=== PATIENT | female | born 1960 | race Caucasian/White ===

== ENCOUNTER 2016-12-12 16:09 | Inpatient (IN) | payer MEDICAID, OTHER ==
[~2016-12-12] VITALS: Ht 170.2 cm; Wt 97.7 kg
[~2016-12-12 16:09] MED LIST: ARIP20 PO; CARB0.5D16 OU; GEOD80CA PO; NYSTT TOP; ZANTTAB9 PO
[2016-12-12] MEDS ORDERED: ATOR10TA15 PO (16:42)
[2016-12-12] MEDS ORDERED: GABA100C4 PO (16:42)
[2016-12-12] MEDS ORDERED: [UNRECOGNIZED DRUG - OTHER] (16:42)
[2016-12-12] MEDS ORDERED: INVE1.5T PO (16:42)
[2016-12-12 16:51] VITALS: BP 116/76; PULSE 115; RESP 18; TEMP 99.4; O2SAT 99
[2016-12-12 17:04] LABS: BACTERIA, URINE OCC /hpf; BLOOD, URINE TRACE (NEG); COMMENT (UR) CULTURE INDICATED; CULTURE IF INDICATED CULTURE INDICATED; GLUCOSE,URINE NEG (NEG); HYALINE CAST, URINE 23 /lpf (RARE); KETONE, URINE NEG (NEG); MUCUS URINE MANY /lpf (OCC); NITRITE,URINE NEG (NEG); SQUAMOUS EPITHELIAL CELL URINE 16 /hpf (0-5); URINE COLOR YELLOW (YELLW/STRAW)
[2016-12-12 17:07] LABS: HEMATOCRIT 37.4 % (35.0-46.0); HEMO FLAGS DIFF FINAL; LYMPH % 43.3 % (9.0-44.0); LYMPHOCYTE # 2.7 TH/MM3 (1.0-4.8); MEAN CELL VOLUME 83.9 FL (80.0-100.0); MEAN CORPUSCULAR HEMOGLOBIN 29.1 PG (27.0-34.0); MEAN CORPUSCULAR HGB CONC 34.7 % (32.0-36.0); MONO % 8.6 % (0.0-8.0); NEUT % 48.1 % (16.0-70.0); PLATELET COUNT 252 TH/MM3 (150-450); RED BLOOD COUNT 4.46 MIL/MM3 (4.00-5.30); RED CELL DISTRIBUTION WIDTH 14.9 % (11.6-17.2); WHITE BLOOD COUNT 6.2 TH/MM3 (4.0-11.0)
[2016-12-12] MEDS ORDERED: BACT800T5 PO (17:08)
[2016-12-12] MEDS ORDERED: SULFAMETHOXAZOLE-TRIMETHOPRIM DS 800-160 MG TAB PO ONE (17:15)
[2016-12-12 17:23] LABS: ANION GAP 7 MEQ/L (5-15); BICARBONATE 27.8 MEQ/L (21.0-32.0); BLOOD UREA NITROGEN 18 MG/DL (7-18); CHLORIDE 108 MEQ/L (98-107); GLOMERULAR FILTRATION RATE 61 ML/MIN (>89); POTASSIUM 3.7 MEQ/L (3.5-5.1); SODIUM (NA) 143 MEQ/L (136-145)
[2016-12-12 17:24] LABS: ALCOHOL LESS THAN 3 MG/DL (0-5)
[2016-12-12 17:25] LABS: ACETAMINOPHEN LESS THAN 2.0 MCG/ML (10.0-30.0)
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
[2016-12-12 18:24] VITALS: BP 119/78; PULSE 111; RESP 18; O2SAT 96
[2016-12-12 22:04] VITALS: BP 126/58; PULSE 71; RESP 18; O2SAT 95
[2016-12-13] MEDS ORDERED: HALOPERIDOL 5 MG TAB PO PRN (00:15)
[2016-12-13] MEDS ORDERED: ALUMINUM/MAGNESIUM/SIMETH 30 ML CUP PO PRN (00:15)
[2016-12-13] MEDS ORDERED: diphenhydrAMINE HCL 50 MG CAP PO PRN (00:15)
[2016-12-13] MEDS ORDERED: LORazepam 1 MG TAB PO PRN (00:15)
[2016-12-13] MEDS ORDERED: LORazepam 2 MG/ML VIAL IM PRN (00:15)
[2016-12-13] MEDS ORDERED: HALOPERIDOL LACTATE 5 MG/ML AMP IM PRN (00:15)
[2016-12-13] MEDS ORDERED: diphenhydrAMINE HCL 50 MG/ML VIAL IM PRN (00:15)
[2016-12-13 02:15] VITALS: BP 122/62; PULSE 73; RESP 18; O2SAT 98
[2016-12-13 04:50] VITALS: BP 123/72; PULSE 91; RESP 18; TEMP 97.6; O2SAT 98
[2016-12-13] MEDS: GABAPENTIN 100 MG CAP PO SCH ×2 (08:54→20:45)
[2016-12-13] MEDS: SULFAMETHOXAZOLE-TRIMETHOPRIM DS 800-160 MG TAB PO SCH ×2 (08:55→20:45)
[2016-12-13] MEDS: REMOVE OLD PATCH T-DERMAL SCH (09:00)
[2016-12-13] MEDS: NICOTINE 21 MG/24 HR PATCH T-DERMAL SCH (09:00)
[2016-12-13] MEDS ORDERED: PALIPERIDONE ER 1.5 MG TAB PO SCH (09:00)
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
[2016-12-13 12:18] LABS: ALKALINE PHOSPHATASE 86 U/L (45-117); ALT (GPT) 22 U/L (10-53); ANION GAP 6 MEQ/L (5-15); AST (GOT) 21 U/L (15-37); BICARBONATE 29.3 MEQ/L (21.0-32.0); BLOOD UREA NITROGEN 14 MG/DL (7-18); CHLORIDE 100 MEQ/L (98-107); GLOMERULAR FILTRATION RATE 83 ML/MIN (>89); HDL CHOLESTEROL 39.3 MG/DL (40.0-60.0); LDL CHOLESTEROL 61 MG/DL (0-99); POTASSIUM 3.7 MEQ/L (3.5-5.1); SODIUM (NA) 135 MEQ/L (136-145); TOTAL BILIRUBIN ADULT 0.4 MG/DL (0.2-1.0)
[2016-12-13] MEDS ORDERED: PALIPERIDONE PALMITATE 234 MG/1.5 ML SYRINGE IM ONE ×2 (14:45→22:00)
[2016-12-13 17:05] LABS: HEMOGLOBIN A1a 1.2 %; HEMOGLOBIN A1b 0.8 %; HEMOGLOBIN Ao 85.1 %; HEMOGLOBIN P3 3.6 %
[2016-12-13] MEDS: ACETAMINOPHEN 325 MG TAB PO PRN (17:33)
[2016-12-13 19:14] VITALS: BP 124/81; PULSE 91; RESP 18; TEMP 97.6; O2SAT 97
[2016-12-13] MEDS: ATORVASTATIN 10 MG TAB PO SCH (20:45)
[2016-12-14 05:17] VITALS: BP 115/63; PULSE 79; RESP 18; TEMP 98; O2SAT 97
[2016-12-14] MEDS: SULFAMETHOXAZOLE-TRIMETHOPRIM DS 800-160 MG TAB PO SCH ×2 (08:37→20:59)
[2016-12-14] MEDS: GABAPENTIN 100 MG CAP PO SCH ×2 (09:00→20:58)
[2016-12-14] MEDS: PALIPERIDONE ER 1.5 MG TAB PO SCH (09:00)
[2016-12-14] MEDS: NICOTINE 21 MG/24 HR PATCH T-DERMAL SCH (09:00)
[2016-12-14] MEDS: REMOVE OLD PATCH T-DERMAL SCH (09:00)
[2016-12-14] MEDS ORDERED: PALIPERIDONE ER 1.5 MG TAB PO SCH (09:00)
--- NOTE | 2016-12-14 17:16 | EKG ---
Date Performed: 12/14/2016 Time Performed: 07:47:19 PTAGE: 56 years EKG: Sinus rhythm NORMAL ECG Compared to prior tracing no significant change PREVIOUS TRACING : 01/11/2009 07.18 DOCTOR: Gabriel Bunn Interpretating Date/Time 12/14/2016 17:15:17
[2016-12-14 18:27] VITALS: BP 144/82; PULSE 107; RESP 18; TEMP 99; O2SAT 98
[2016-12-14] MEDS: ATORVASTATIN 10 MG TAB PO SCH (20:58)
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
[2016-12-15 06:20] VITALS: BP 113/64; PULSE 82; RESP 17; TEMP 98.2; O2SAT 96
[2016-12-15] MEDS: ACETAMINOPHEN 325 MG TAB PO PRN (08:16)
[2016-12-15] MEDS: GABAPENTIN 100 MG CAP PO SCH ×2 (08:17→22:10)
[2016-12-15] MEDS: SULFAMETHOXAZOLE-TRIMETHOPRIM DS 800-160 MG TAB PO SCH ×2 (08:18→22:10)
[2016-12-15] MEDS: PALIPERIDONE ER 1.5 MG TAB PO SCH (08:18)
[2016-12-15] MEDS: NICOTINE 21 MG/24 HR PATCH T-DERMAL SCH (08:22)
[2016-12-15] MEDS: REMOVE OLD PATCH T-DERMAL SCH (08:22)
[2016-12-15] MEDS: MAGNESIUM HYDROXIDE SUSP 30 ML CUP PO PRN (12:13)
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
[2016-12-15 18:24] VITALS: BP 118/77; PULSE 91; RESP 16; TEMP 98.2; O2SAT 96
[2016-12-15] MEDS: ATORVASTATIN 10 MG TAB PO SCH (22:11)
[2016-12-16 06:00] VITALS: BP 120/70; PULSE 74; RESP 18; TEMP 98; O2SAT 95
[2016-12-16] MEDS: GABAPENTIN 100 MG CAP PO SCH ×2 (08:55→21:03)
[2016-12-16] MEDS: SULFAMETHOXAZOLE-TRIMETHOPRIM DS 800-160 MG TAB PO SCH ×2 (08:55→21:03)
[2016-12-16] MEDS: NICOTINE 21 MG/24 HR PATCH T-DERMAL SCH (09:00)
[2016-12-16] MEDS: REMOVE OLD PATCH T-DERMAL SCH (09:00)
[2016-12-16] MEDS ORDERED: PALIPERIDONE ER 3 MG TAB PO SCH (09:00)
--- NOTE | 2016-12-16 16:02 | HHI.PYPN ---
Subjective Remarks Patient discussed with treatment team, patient seen on unit with nurse Kristen. I replaced patient from contact with her at [employer] many years ago. And she appeared to recognize me also. She is vague about any persistent auditory hallucinations though she denies suicidality. She is compliant with medications at the present time. It appears she is tolerating the Invega orally at this time if this continues for another few days will offer her the in [place] sustain a Review of Systems Except as stated in HPI: all other systems reviewed are Neg Objective Alert: Yes [place]: Person, Place Mood: Other (elevated) Affect: Other (intense bizarre stare) Memory Intact: Comment (fair) Hallucinations: Auditory (appears to be responding to internal stimuli) Delusions: Yes Delusion Type: Paranoid Suicidal: Ideation (denies) Homicidal: Ideation (denies) Insight/Judgment Poor Labs Date/Time Procedure Status Source Growth 12/12/16 16:41 Urine Culture - Final Complete Urine Clean Catch 50-100,000 CFU/ML MIXED KIP... Vitals/IOs Vital Signs Date Time Temp Pulse Resp B/P Pulse Ox O2 Delivery O2 Flow Rate FiO2 12/16/16 06:00 98.0 74 18 120/70 95 12/13/16 02:15 Room Air Intake and Output 12/15/16 12/15/16 12/16/16 08:00 16:00 00:00 Intake Total 240 ml Balance 240 ml Assessment & Plan Problem List: (1) Schizoaffective disorder ICD Code: F25.9 Assessment & Plan Estimated LOS: days she continues psychotic delusional though appears to be no behavior problem, compliant medications Justification for Cont. Inpt. At this time patient will decompensate if placed in a lower level of care Discharge Planning To be determined Request HC Surrog/Guard Advoc?: Yes Problem Qualifiers (1) Schizoaffective disorder: Qualified Code: F25.0 - Schizoaffective disorder, bipolar type Matt Christine MD Dec 16, 2016 16:02
[2016-12-16 18:15] VITALS: BP 106/85; PULSE 136; RESP 18; TEMP 98.2; O2SAT 96
[2016-12-16] MEDS: ATORVASTATIN 10 MG TAB PO SCH (21:03)
[2016-12-17] MEDS: ACETAMINOPHEN 325 MG TAB PO PRN ×2 (03:11→18:36)
[2016-12-17 05:51] VITALS: BP 113/69; PULSE 84; RESP 18; TEMP 97.9; O2SAT 96
[2016-12-17] MEDS: GABAPENTIN 100 MG CAP PO SCH ×2 (08:52→21:43)
[2016-12-17] MEDS: SULFAMETHOXAZOLE-TRIMETHOPRIM DS 800-160 MG TAB PO SCH ×2 (08:52→21:43)
[2016-12-17] MEDS: PALIPERIDONE ER 6 MG TAB PO SCH (08:52)
[2016-12-17] MEDS: PALIPERIDONE ER 1.5 MG TAB PO SCH (08:52)
[2016-12-17] MEDS: REMOVE OLD PATCH T-DERMAL SCH (08:53)
[2016-12-17] MEDS: NICOTINE 21 MG/24 HR PATCH T-DERMAL SCH (08:53)
[2016-12-17 15:22] VITALS: BP 113/74; PULSE 96; RESP 18; TEMP 98.2; O2SAT 96
--- NOTE | 2016-12-17 16:35 | HHI.PYPN ---
Subjective Remarks Patient seen in dayroom with floor staff. Patient calm appropriate and pleasant with me denying voices or visions. Those somewhat silly superficial and guarded. It appears she is now becoming willing to take the in [place] sustain a that she has refused with the fact team will order that for tomorrow Review of Systems Except as stated in HPI: all other systems reviewed are Neg Objective Alert: Yes [place]: Person, Place Mood: Other (elevated) Affect: Other (intense bizarre stare) Memory Intact: Comment (fair) Hallucinations: Auditory (appears to be responding to internal stimuli) Delusions: Yes Delusion Type: Paranoid Suicidal: Ideation (denies) Homicidal: Ideation (denies) Insight/Judgment Poor Labs Date/Time Procedure Status Source Growth 12/12/16 16:41 Urine Culture - Final Complete Urine Clean Catch 50-100,000 CFU/ML MIXED KIP... Vitals/IOs Vital Signs Date Time Temp Pulse Resp B/P Pulse Ox O2 Delivery O2 Flow Rate FiO2 12/17/16 15:22 98.2 96 18 113/74 96 Assessment & Plan Problem List: (1) Schizoaffective disorder ICD Code: F25.9 Assessment & Plan Estimated LOS: days patient continue psychotic but improving. Will order Invega Sustenna for tomorrow Justification for Cont. Inpt. At this time patient will decompensate placed on the lower level of care Discharge Planning To be determined Request HC Surrog/Guard Advoc?: Yes Problem Qualifiers (1) Schizoaffective disorder: Qualified Code: F25.0 - Schizoaffective disorder, bipolar type Matt Christine MD Dec 17, 2016 16:35
[2016-12-17] MEDS: ATORVASTATIN 10 MG TAB PO SCH (21:43)
[2016-12-18 05:13] VITALS: BP 107/61; PULSE 66; RESP 16; TEMP 97.8; O2SAT 99
[2016-12-18] MEDS: ACETAMINOPHEN 325 MG TAB PO PRN (05:58)
[2016-12-18] MEDS ORDERED: PALIPERIDONE PALMITATE 234 MG/1.5 ML SYRINGE IM ONE (08:00)
[2016-12-18] MEDS: NICOTINE 21 MG/24 HR PATCH T-DERMAL SCH (09:00)
[2016-12-18] MEDS: REMOVE OLD PATCH T-DERMAL SCH (09:00)
[2016-12-18] MEDS: GABAPENTIN 100 MG CAP PO SCH ×2 (09:14→20:45)
[2016-12-18] MEDS: PALIPERIDONE ER 1.5 MG TAB PO SCH (09:15)
[2016-12-18] MEDS: PALIPERIDONE ER 6 MG TAB PO SCH (09:15)
[2016-12-18] MEDS: SULFAMETHOXAZOLE-TRIMETHOPRIM DS 800-160 MG TAB PO SCH ×2 (09:15→20:45)
--- NOTE | 2016-12-18 13:05 | HHI.PYPN ---
Subjective Remarks Patient seen in with nurse Yessi and counselor nano . Chart reviewed. Patient compliant medications. Did receive Invega Sustenna injection. Patient calmer more focused time showing some difficulty with accepting her diagnosis or need for mental health care. overall she is redirectable. She is compliant with medications. Patient this time scheduled for [place] [address] tomorrow. However the skeletal patient does have capacity to sign for admission and her medication thus I will lift the [place] act allow patient to sign voluntary. Consider discharge within 24-48 hours fact team Review of Systems Except as stated in HPI: all other systems reviewed are Neg Objective Alert: Yes [place]: Person, Place Mood: Other (elevated) Affect: Other (intense bizarre stare) Memory Intact: Comment (fair) Hallucinations: Auditory (appears to be responding to internal stimuli) Delusions: Yes Delusion Type: Paranoid Suicidal: Ideation (denies) Homicidal: Ideation (denies) Insight/Judgment Poor Vitals/IOs Vital Signs Date Time Temp Pulse Resp B/P Pulse Ox O2 Delivery O2 Flow Rate FiO2 12/18/16 05:13 97.8 66 16 107/61 99 Assessment & Plan Problem List: (1) Schizoaffective disorder ICD Code: F25.9 Assessment & Plan Estimated LOS: days patient compliant medications, her psychosis is resolving. This them I will allow patient to sign voluntary Justification for Cont. Inpt. Inpatient medical decompensate and placed in the lower level of care Discharge Planning To be determined Request HC Surrog/Guard Advoc?: Yes Problem Qualifiers (1) Schizoaffective disorder: Qualified Code: F25.0 - Schizoaffective disorder, bipolar type Matt Christine MD Dec 18, 2016 13:05
[2016-12-18] MEDS: ATORVASTATIN 10 MG TAB PO SCH (20:44)
[2016-12-19] MEDS: ACETAMINOPHEN 325 MG TAB PO PRN ×2 (00:11→13:53)
[2016-12-19 05:32] VITALS: BP 99/55; PULSE 73; RESP 18; TEMP 98.3; O2SAT 97
[2016-12-19] MEDS: GABAPENTIN 100 MG CAP PO SCH ×2 (08:36→20:32)
[2016-12-19] MEDS: SULFAMETHOXAZOLE-TRIMETHOPRIM DS 800-160 MG TAB PO SCH ×2 (08:36→20:32)
[2016-12-19] MEDS: PALIPERIDONE ER 1.5 MG TAB PO SCH (08:36)
[2016-12-19] MEDS: PALIPERIDONE ER 6 MG TAB PO SCH (08:36)
[2016-12-19] MEDS: NICOTINE 21 MG/24 HR PATCH T-DERMAL SCH (08:38)
[2016-12-19] MEDS: REMOVE OLD PATCH T-DERMAL SCH (08:38)
--- NOTE | 2016-12-19 15:08 | HHI.PYPN ---
Subjective Remarks Patient seen in [place] with forceps, patient alert oriented somewhat intrusive mildly elevated mood. Though redirectable. She denies suicidality homicidality voices or visions. Is willing to continue with her medication and willing to follow-up with the fact team. We need to verify patient's living arrangements. Review of Systems Except as stated in HPI: all other systems reviewed are Neg Objective Alert: Yes [place]: Person, Place Mood: Other (elevated) Affect: Other (intense bizarre stare) Memory Intact: Comment (fair) Hallucinations: Auditory (appears to be responding to internal stimuli) Delusions: Yes Delusion Type: Paranoid Suicidal: Ideation (denies) Homicidal: Ideation (denies) Insight/Judgment Very poor Vitals/IOs Vital Signs Date Time Temp Pulse Resp B/P Pulse Ox O2 Delivery O2 Flow Rate FiO2 12/19/16 05:32 98.3 73 18 99/55 97 Assessment & Plan Problem List: (1) Schizoaffective disorder ICD Code: F25.9 Assessment & Plan Estimated LOS: days patient continues mildly psychotic but improving, compliant medications. For now continue treatment Justification for Cont. Inpt. At this time patient decompensate placed in a lower level of care Discharge Planning To be determined Request HC Surrog/Guard Advoc?: Yes Problem Qualifiers (1) Schizoaffective disorder: Qualified Code: F25.0 - Schizoaffective disorder, bipolar type Matt Christine MD Dec 19, 2016 15:08
[2016-12-19 18:17] VITALS: BP 121/66; PULSE 82; RESP 16; TEMP 98.1; O2SAT 97
[2016-12-19] MEDS: ATORVASTATIN 10 MG TAB PO SCH (20:32)
[2016-12-19] MEDS: diphenhydrAMINE HCL 50 MG CAP PO PRN (20:32)
[2016-12-20 05:32] VITALS: BP 115/62; PULSE 68; RESP 16; TEMP 98.2
[2016-12-20] MEDS: PALIPERIDONE ER 6 MG TAB PO SCH (08:30)
[2016-12-20] MEDS: GABAPENTIN 100 MG CAP PO SCH ×2 (08:31→21:14)
[2016-12-20] MEDS: SULFAMETHOXAZOLE-TRIMETHOPRIM DS 800-160 MG TAB PO SCH ×2 (08:31→21:13)
[2016-12-20] MEDS: PALIPERIDONE ER 1.5 MG TAB PO SCH (08:31)
[2016-12-20] MEDS: REMOVE OLD PATCH T-DERMAL SCH (08:33)
[2016-12-20] MEDS: NICOTINE 21 MG/24 HR PATCH T-DERMAL SCH (08:33)
--- NOTE | 2016-12-20 10:26 | HHI.PYPN ---
Subjective Remarks Patient seen in [place] of floor staff, chart reviewed, patient compliant medication. Patient continues somewhat intense and mildly intrusive but overall calm cooperative with good eye contact. She denies suicidality homicidality voices or visions. She states she has not apartment returned to with followed up with the fact team. Will have counselor verify the apartment and its availability. Consider discharge either today or Saturday 12/23 Review of Systems Except as stated in HPI: all other systems reviewed are Neg Objective Alert: Yes [place]: Person, Place Mood: Other (elevated) Affect: Other (intense bizarre stare) Memory Intact: Comment (fair) Hallucinations: Auditory (appears to be responding to internal stimuli) Delusions: Yes Delusion Type: Paranoid Suicidal: Ideation (denies) Homicidal: Ideation (denies) Insight/Judgment Poor Vitals/IOs Vital Signs Date Time Temp Pulse Resp B/P Pulse Ox O2 Delivery O2 Flow Rate FiO2 12/20/16 05:32 98.2 68 16 115/62 12/19/16 18:17 97 Intake and Output 12/19/16 12/19/16 12/20/16 08:00 16:00 00:00 Intake Total 480 ml Balance 480 ml Assessment & Plan Problem List: (1) Schizoaffective disorder ICD Code: F25.9 Assessment & Plan Estimated LOS: days patient continues somewhat intense intrusive though overall cooperative no significant behavior problems. Compliant medications. Now continue treatment. If apartment is verified consider discharge in the today on 12/23 Justification for Cont. Inpt. This time patient will decompensate if not placed in an appropriate level of care Discharge Planning To be determined Request HC Surrog/Guard Advoc?: Yes Problem Qualifiers (1) Schizoaffective disorder: Qualified Code: F25.0 - Schizoaffective disorder, bipolar type Matt Christine MD Dec 20, 2016 10:26
[2016-12-20 20:27] VITALS: BP 128/71; PULSE 85; RESP 17; TEMP 98.7; O2SAT 99
[2016-12-20] MEDS: ATORVASTATIN 10 MG TAB PO SCH (21:00)
[2016-12-21 05:21] VITALS: BP 111/62; PULSE 64; RESP 16; TEMP 98; O2SAT 97
[2016-12-21] MEDS: GABAPENTIN 100 MG CAP PO SCH ×2 (08:56→20:51)
[2016-12-21] MEDS: PALIPERIDONE ER 1.5 MG TAB PO SCH (08:56)
[2016-12-21] MEDS: PALIPERIDONE ER 6 MG TAB PO SCH (08:56)
[2016-12-21] MEDS: SULFAMETHOXAZOLE-TRIMETHOPRIM DS 800-160 MG TAB PO SCH ×2 (08:56→20:51)
[2016-12-21] MEDS: REMOVE OLD PATCH T-DERMAL SCH (08:57)
[2016-12-21] MEDS: NICOTINE 21 MG/24 HR PATCH T-DERMAL SCH (08:57)
[2016-12-21] MEDS: ACETAMINOPHEN 325 MG TAB PO PRN ×2 (10:42→21:21)
--- NOTE | 2016-12-21 15:47 | HHI.PYPN ---
Subjective Remarks Patient was seen and case discussed with nursing. Patient is bright and cheerful during the interview. She is guarded and refuses to talk about the circumstances leading to her admission. His behaving well on the unit. Mood is "alright." Denies auditory visual hallucinations. Compliant with medications Objective Alert: Yes [place]: Person, Place Mood: Oppositional Affect: Blunted Memory Intact: Comment (fair) Hallucinations: Auditory (appears to be responding to internal stimuli) Delusions: Yes Delusion Type: Paranoid Suicidal: Ideation (denies) Homicidal: Ideation (denies) Insight/Judgment Poor Vitals/IOs Vital Signs Date Time Temp Pulse Resp B/P Pulse Ox O2 Delivery O2 Flow Rate FiO2 12/21/16 05:21 98.0 64 16 111/62 97 Assessment & Plan Problem List: (1) Schizoaffective disorder ICD Code: F25.9 Assessment & Plan Continue current treatment plan Justification for Cont. Inpt. Patient would decompensate in a less restrictive setting Request HC Surrog/Guard Advoc?: Yes Problem Qualifiers (1) Schizoaffective disorder: Qualified Code: F25.0 - Schizoaffective disorder, bipolar type Osito Salvador DO Dec 21, 2016 15:47
[2016-12-21 17:00] VITALS: BP 143/63; PULSE 76; RESP 17; TEMP 98.1; O2SAT 96
[2016-12-21] MEDS: ATORVASTATIN 10 MG TAB PO SCH (20:51)
[2016-12-22 07:14] VITALS: BP 102/59; PULSE 75; RESP 16; O2SAT 96
[2016-12-22] MEDS: GABAPENTIN 100 MG CAP PO SCH ×2 (09:00→20:51)
[2016-12-22] MEDS: REMOVE OLD PATCH T-DERMAL SCH (09:00)
[2016-12-22] MEDS: PALIPERIDONE ER 1.5 MG TAB PO SCH (09:00)
[2016-12-22] MEDS: PALIPERIDONE ER 6 MG TAB PO SCH (09:00)
[2016-12-22] MEDS: NICOTINE 21 MG/24 HR PATCH T-DERMAL SCH (09:00)
[2016-12-22] MEDS: SULFAMETHOXAZOLE-TRIMETHOPRIM DS 800-160 MG TAB PO SCH ×2 (09:00→20:51)
--- NOTE | 2016-12-22 16:57 | HHI.PYPN ---
Subjective Remarks Patient was seen and case discussed with nursing. Patient is pleasant and cooperative with exam. Insight remains poor. Think she is here for x-rays. She is behaving well on the unit. Blunted affect. Superficial during the interview. Mood is "alright." Sleeping and eating well per nursing. Denied auditory or visual hallucinations Objective Alert: Yes [place]: Person, Place Mood: Oppositional Affect: Restricted Memory Intact: Comment (fair) Hallucinations: Auditory (appears to be responding to internal stimuli) Delusions: Yes Delusion Type: Paranoid Suicidal: Ideation (denies) Homicidal: Ideation (denies) Insight/Judgment Poor Labs Date/Time Source Procedure Growth Status 12/12/16 16:41 Urine Clean Catch Urine Culture - Final 50-100,000 CFU/ML MIXED KIP... Complete Vitals/IOs Vital Signs Date Time Temp Pulse Resp B/P (MAP) Pulse Ox O2 Delivery O2 Flow Rate FiO2 12/22/16 07:14 75 16 102/59 (73) 96 12/21/16 17:00 98.1 Assessment & Plan Problem List: (1) Schizoaffective disorder ICD Codes: F25.9 - Schizoaffective disorder, unspecified Status: Acute Assessment & Plan Continue current treatment plan Justification for Cont. Inpt. Patient would decompensate in a less restrictive setting Request HC Surrog/Guard Advoc?: Yes Problem Qualifiers (1) Schizoaffective disorder: Osito Salvador DO Dec 22, 2016 16:57
[2016-12-22 18:36] VITALS: BP 121/58; PULSE 84; RESP 17; TEMP 97.7; O2SAT 98
[2016-12-22] MEDS: ATORVASTATIN 10 MG TAB PO SCH (21:09)
[2016-12-22] MEDS: diphenhydrAMINE HCL 50 MG CAP PO PRN (21:28)
[2016-12-22] MEDS: ACETAMINOPHEN 325 MG TAB PO PRN (21:28)
[2016-12-23] MEDS: PALIPERIDONE ER 1.5 MG TAB PO SCH (08:44)
[2016-12-23] MEDS: GABAPENTIN 100 MG CAP PO SCH ×2 (08:44→21:00)
[2016-12-23] MEDS: SULFAMETHOXAZOLE-TRIMETHOPRIM DS 800-160 MG TAB PO SCH ×2 (08:44→21:05)
[2016-12-23] MEDS: PALIPERIDONE ER 6 MG TAB PO SCH (08:44)
[2016-12-23] MEDS: NICOTINE 21 MG/24 HR PATCH T-DERMAL SCH (08:46)
[2016-12-23] MEDS: REMOVE OLD PATCH T-DERMAL SCH (09:00)
[2016-12-23] MEDS: ACETAMINOPHEN 325 MG TAB PO PRN ×2 (09:50→21:41)
[2016-12-23] MEDS: MAGNESIUM HYDROXIDE SUSP 30 ML CUP PO PRN (09:50)
--- NOTE | 2016-12-23 16:42 | HHI.PYPN ---
Subjective Remarks Patient seen in her room with nurse Meredith, chart review, patient compliant medications. Patient somewhat calmer less intense labile and intrusive. Sitting on her apartment and her desire to discharge. We'll check with counselor tomorrow related to this Review of Systems Except as stated in HPI: all other systems reviewed are Neg Objective Alert: Yes [place]: Person, Place Mood: Oppositional Affect: Restricted Memory Intact: Comment (fair) Hallucinations: Auditory (appears to be responding to internal stimuli) Delusions: Yes Delusion Type: Paranoid Suicidal: Ideation (denies) Homicidal: Ideation (denies) Insight/Judgment Poor Labs Date/Time Source Procedure Growth Status 12/12/16 16:41 Urine Clean Catch Urine Culture - Final 50-100,000 CFU/ML MIXED KIP... Complete Vitals/IOs Vital Signs Date Time Temp Pulse Resp B/P (MAP) Pulse Ox O2 Delivery O2 Flow Rate FiO2 12/22/16 18:36 97.7 84 17 121/58 (79) 98 Assessment & Plan Problem List: (1) Schizoaffective disorder ICD Codes: F25.9 - Schizoaffective disorder, unspecified Status: Acute Assessment & Plan Estimated LOS: days patient psychosis is slowly resolving, she is calmer more appropriate, compliant medications Justification for Cont. Inpt. At this time patient will decompensate if not placed in an appropriate level of care Discharge Planning To be determined Request HC Surrog/Guard Advoc?: Yes Problem Qualifiers (1) Schizoaffective disorder: Matt Christine MD Dec 23, 2016 16:42
[2016-12-23] MEDS: ATORVASTATIN 10 MG TAB PO SCH (21:00)
[2016-12-24 05:58] VITALS: BP 99/54; PULSE 75; RESP 18; TEMP 98.5; O2SAT 96
[2016-12-24] MEDS: NICOTINE 21 MG/24 HR PATCH T-DERMAL SCH (07:36)
[2016-12-24] MEDS: REMOVE OLD PATCH T-DERMAL SCH (07:36)
[2016-12-24] MEDS: PALIPERIDONE ER 1.5 MG TAB PO SCH (08:44)
[2016-12-24] MEDS: GABAPENTIN 100 MG CAP PO SCH ×2 (08:44→20:33)
[2016-12-24] MEDS: PALIPERIDONE ER 6 MG TAB PO SCH (08:44)
[2016-12-24] MEDS: ACETAMINOPHEN 325 MG TAB PO PRN (08:45)
[2016-12-24] MEDS: MAGNESIUM HYDROXIDE SUSP 30 ML CUP PO PRN (09:09)
--- NOTE | 2016-12-24 15:19 | HHI.PYPN ---
Subjective Remarks Patient seen and examined. Chart reviewed. I note that the patient was started on Invega Sustenna on 12/18. Case discussed in treatment team. On my exam, patient seems improved with respect to her psychosis from our last contact. She remains somewhat suspicious of the motives of the [facility] team but says of her acute paranoia regarding her rn case management, "I'm over it. I was just really upset. It blows over, you know." No other delusional material elicited. Denies AVH. Denies SI/HI. Mood is fairly good. Denies side effects from medications. Complains of some constipation but still passing flatus. No BM reportedly in approximately 4 days. No associated nausea or anorexia. No other physical complaints. Says that she normally eats a higher fiber diet at home. Review of Systems Except as stated in HPI: all other systems reviewed are Neg Objective Alert: Yes [place]: Person, Place Mood: Calm Affect: Appropriate Memory Intact: Comment (fairly intact on clinical exam) Hallucinations: Other (denies AVH) Delusions: Yes Delusion Type: Paranoid (resolving or resolved) Suicidal: Ideation (denies SI) Homicidal: Ideation (denies HI) Insight/Judgment Poor Remarks No motor abnormalities noted. Thought process linear. Grooming and hygiene fair. Labs Date/Time Source Procedure Growth Status 12/12/16 16:41 Urine Clean Catch Urine Culture - Final 50-100,000 CFU/ML MIXED KIP... Complete Labs reviewed. Vitals/IOs Vital Signs Date Time Temp Pulse Resp B/P (MAP) Pulse Ox O2 Delivery O2 Flow Rate FiO2 12/24/16 05:58 98.5 75 18 99/54 (69) 96 Assessment & Plan Problem List: (1) Schizoaffective disorder ICD Codes: F25.9 - Schizoaffective disorder, unspecified Status: Acute Assessment & Plan Patient improved with Invega/Sustenna. Administer booster dose of Invega Sustenna 156mg IM tomorrow. Taper oral Invega to 6mg/day with plans for further taper as extended oral supplementation is not required with Invega Sustenna. D/c Bactrim, no indication for ongoing antibiotic and patient denies urinary symptoms. Add Metamucil and Senna-Colace. Continue other medications and care as ordered. Justification for Cont. Inpt. Medication changes in process. Risk for decompensation in less restrictive setting. Discharge Planning Possible discharge later this week. Considered involuntary outpatient commitment, but it appears patient does not presently meet criteria. Request HC Surrog/Guard Advoc?: Yes Problem Qualifiers (1) Schizoaffective disorder: Oren Péerz MD Dec 24, 2016 15:19
--- NOTE | 2016-12-24 15:33 | PD.TTN ---
Present for Treatment Team Treatment Team Staff: Provider (Dr. Pérez), Nurse (Rosie ), Psych Therapist (Selina), Occupational Therapist (Austin LOGAN) Patient Problems 1. Discharge planning 2. Medication compliance 3. Knowledge deficit 4. Lack of coping skills Progress Toward Goals Provider Input: Patient has been compliant with medications and has no changes in side effects. Nurse Input: Patient is pleasant with increased confusion and paranoia. Patient is seen to be talking with peers in the day room. patient does endorse inability to sleep. Psych Therapist Input: Patient is pleasant and presents with a child like affect. Patient continues to have paranoia but does not seem to be bothered by them. Patient has superficial short term goals, such as completing her art. Overall patient is doing well. Occupational Therapist Input: Patient attends group and it noted to be somewhat intrusive. Selina Frazier [facility] Dec 24, 2016 15:33
[2016-12-24] MEDS ORDERED: PALIPERIDONE PALMITATE 156 MG/ML SYRINGE IM ONE (17:00)
[2016-12-24 18:08] VITALS: BP 142/56; PULSE 75; RESP 18; TEMP 98.4; O2SAT 96
[2016-12-24] MEDS: ATORVASTATIN 10 MG TAB PO SCH (20:34)
[2016-12-24] MEDS: DOCUSATE SODIUM 50 MG/SENNA 8.6 MG TAB PO SCH (21:10)
[2016-12-25 06:03] VITALS: BP 101/55; PULSE 67; RESP 18; TEMP 97.7; O2SAT 98
[2016-12-25] MEDS: DOCUSATE SODIUM 50 MG/SENNA 8.6 MG TAB PO SCH ×2 (08:34→20:35)
[2016-12-25] MEDS: PSYLLIUM FIBER SF/GF 6 GM POWD PKT PO SCH (08:34)
[2016-12-25] MEDS: GABAPENTIN 100 MG CAP PO SCH ×2 (08:34→20:35)
[2016-12-25] MEDS: NICOTINE 21 MG/24 HR PATCH T-DERMAL SCH (08:34)
[2016-12-25] MEDS: REMOVE OLD PATCH T-DERMAL SCH (08:36)
[2016-12-25] MEDS ORDERED: PALIPERIDONE PALMITATE 156 MG/ML SYRINGE IM ONE (09:00)
[2016-12-25] MEDS ORDERED: PALIPERIDONE ER 6 MG TAB PO SCH (09:00)
[2016-12-25 13:30] LABS: BICARBONATE 28.6 MEQ/L (21.0-32.0); POTASSIUM 3.8 MEQ/L (3.5-5.1)
--- NOTE | 2016-12-25 14:48 | HHI.PYPN ---
Subjective Remarks Patient seen and examined with nurse. Chart reviewed. Case discussed with nursing staff. Nursing notes that the patient is much improved relative to the last time she cared for the patient. The patient accepted Invega Sustenna without incident. She has not yet had a bowel movement per nursing staff. On my examination today, the patient is in good spirits. She says that she is sleeping and eating well. She denies any suicidal or homicidal ideation. She denies any audiovisual hallucinations. She is presently agreeable to following up with the FACT team and residual paranoia regarding that organization seems minimal. In fact, she says that following up with them would be "a good thing. " Denies side effects from medications. Besides the constipation and some mild dizziness upon standing, no physical complaints. Review of Systems Except as stated in HPI: all other systems reviewed are Neg Objective Alert: Yes Mcleod: Person, Place Mood: Calm Affect: Appropriate, Euthymic Memory Intact: Comment (intact) Hallucinations: Other (again denies AVH) Delusions: No Delusion Type: Paranoid (essentially resolved) Suicidal: Ideation (denies SI) Homicidal: Ideation (denies HI) Insight/Judgment Perhaps improving Remarks No motor abnormalities. Grooming and hygiene good. Thought process linear. Labs Test 12/25/16 12:24 Blood Urea Nitrogen 9 MG/DL Creatinine 0.89 MG/DL Random Glucose 122 MG/DL Calcium Level 9.6 MG/DL Sodium Level 137 MEQ/L Potassium Level 3.8 MEQ/L Chloride Level 101 MEQ/L Carbon Dioxide Level 28.6 MEQ/L Anion Gap 7 MEQ/L Estimat Glomerular Filtration Rate 65 ML/MIN Date/Time Source Procedure Growth Status 12/12/16 16:41 Urine Clean Catch Urine Culture - Final 50-100,000 CFU/ML MIXED KIP... Complete Labs reviewed. Sodium improved. GFR somewhat decreased but within recent historical range. Vitals/IOs Vital Signs Date Time Temp Pulse Resp B/P (MAP) Pulse Ox O2 Delivery O2 Flow Rate FiO2 12/25/16 06:03 97.7 67 18 101/55 (70) 98 Assessment & Plan Problem List: (1) Schizoaffective disorder ICD Codes: F25.9 - Schizoaffective disorder, unspecified Status: Acute Assessment & Plan Patient doing well from a psychiatric standpoint. Decrease oral Invega to 3mg daily. Tolerating Invega Sustenna well besides perhaps some very mild dizziness. Check orthostatics. Fall precautions. Patient counseled on safe standing. Dulcolax 10 mg 1 for constipation. Patient still passing flatus as previously noted. Continue other medications and care as ordered. Justification for Cont. Inpt. Medication changes. Discharge Planning Possible discharge tomorrow or Friday. Request HC Surrog/Guard Advoc?: Yes Problem Qualifiers (1) Schizoaffective disorder: Oren Pérez MD Dec 25, 2016 14:48
[2016-12-25] MEDS ORDERED: BISACODYL EC 5 MG TABEC PO ONE (15:15)
[2016-12-25 15:54] VITALS: BP 112/58; PULSE 70
[2016-12-25 15:55] VITALS: BP 113/66; PULSE 78
[2016-12-25 15:56] VITALS: BP 121/75; PULSE 98
[2016-12-25 18:00] VITALS: BP 112/58; PULSE 70; RESP 18; TEMP 98.9; O2SAT 100
[2016-12-25] MEDS: ATORVASTATIN 10 MG TAB PO SCH (20:36)
[2016-12-26 06:06] VITALS: BP 126/64; PULSE 82; RESP 18; TEMP 97.9; O2SAT 100
[2016-12-26] MEDS: REMOVE OLD PATCH T-DERMAL SCH (07:59)
[2016-12-26] MEDS: NICOTINE 21 MG/24 HR PATCH T-DERMAL SCH (07:59)
[2016-12-26] MEDS: DOCUSATE SODIUM 50 MG/SENNA 8.6 MG TAB PO SCH (08:31)
[2016-12-26] MEDS: GABAPENTIN 100 MG CAP PO SCH (08:31)
[2016-12-26] MEDS: ACETAMINOPHEN 325 MG TAB PO PRN (08:31)
[2016-12-26] MEDS: PSYLLIUM FIBER SF/GF 6 GM POWD PKT PO SCH (08:31)
[2016-12-26] MEDS ORDERED: PALIPERIDONE ER 3 MG TAB PO SCH (09:00)
[2016-12-26] MEDS ORDERED: INVE3TAB2 PO (12:23)
[2016-12-26] MEDS ORDERED: SENN1TAB PO (12:23)
[2016-12-26] MEDS ORDERED: PALI156P IM (12:23)
--- NOTE | 2016-12-26 12:24 | HHI.DS ---
Psychiatry Discharge Summary Inpatient Psychiatric care?: Yes Advance Directive: No Reason Not Provided: Due to Patient Condition Mental Health AdvanceDirective: No Health Care Proxy: No Admission Admission Date Dec 13, 2016 at 00:12 Admission Diagnosis: (1) Schizoaffective disorder ICD Code: F25.9 - Schizoaffective disorder, unspecified Brief History Pt seen and discussed with staff. Chart reviewed. Pt is a [id number] with a hx of schizoaffective d/o admitted to [facility] under an ex-parte initiated by outpatient major case detective alleging paranoia towards tx team and non compliance and poor ADLs. Staff report that pt has been accusing [facility] outpatient team of attempting to turn her into a prostitute. She has been refusing meals and pacing in room. Pt presents in a bizarre fashion with odd, exaggerated mannerisms. She states that it is the day is too beautiful for any of the allegations in ex-parte to be true. She denies ever having any contact with [facility] which is in contradiction to documentation in EHR. No SI/HI Tobacco Use In Past 30 Days: No Tobacco Past 30 Days Alcohol Use: Never Hospital Course Patient was admitted to a locked, inpatient psychiatric unit. Appropriate precautions were in place throughout patient's hospital stay. Patient was seen and examined daily on the unit by psychiatry and also visited by counselor. Psychotropic medications were adjusted. Patient tolerated medications well without significant side effects. Patient was started on long-acting injectable Invega Sustenna to good effect. Patient had improvement in presenting psychiatric symptomatology during the course of her hospital stay. There was no evidence of any suicidality or homicidality on the inpatient unit. On the day of discharge: Patient seen and examined with counselor and nurse. Chart reviewed. Mildly orthostatic by HR but no reported dizziness today. Case discussed with nursing staff. No behavioral issues overnight. Patient was able to have a bowel movement with bowel regimen. On my examination today, the patient is in good spirits. She is requesting discharge from the inpatient psychiatric unit. She denies any suicidal or homicidal ideation, intent or plan on direct questioning and contracts for safety. Denies any audiovisual hallucinations. No residual paranoia regarding the FACT team. No other delusional material elicited. No mood symptoms. No side effects from medications. No physical complaints. Weighing the acute, chronic, and protective factors and based on the available evidence, I cost control analyst to a reasonable degree of medical certainty that the patient is at low imminent risk for harm to self or others from a mental illness and her level of function is adequate for outpatient care. Patient has maximized benefit from this inpatient psychiatric hospital stay will be discharged home today with psychiatric follow- up as arranged by counselor. Patient is also to follow-up with primary care. Psychoeducation provided regarding medication regimen. I counseled the patient regarding warning signs for need to return to the psychiatric emergency room as part of the general safety plan. Results Blood Pressure 126 / 64 Vital Signs Date Time Temp Pulse Resp B/P (MAP) Pulse Ox O2 Delivery O2 Flow Rate FiO2 12/26/16 06:06 97.9 82 18 126/64 (84) 100 Laboratory Tests Test 12/25/16 12:24 Random Glucose 122 MG/DL (74-106) Estimat Glomerular Filtration Rate 65 ML/MIN (>89) Laboratory Results Test 12/13/16 10:07 Cholesterol Level 122 MG/DL (120-200) HDL Cholesterol 39.3 MG/DL (40.0-60.0) Hemoglobin A1c 5.6 % (4.3-6.0) LDL Cholesterol 61 MG/DL (0-99) Triglycerides Level 111 MG/DL (42-150) Summary of Procedures None done Imaging None done Pending results at discharge: No Medications # of Antipsychotic meds at D/C: 1 Approp Antipsych med options 1 - Minimum of three failed multiple trials of monotherapy. 2 - Documented plan to taper to monotherapy due to previous use of multiple meds OR cross-taper in progress at D/C. 3 - Documentation of augmentation of Clozapine. 4 - Justification other than those listed in allowable values 1-3, document here : Discharge Discharge Date: Dec 26, 2016 Discharge Diagnosis: (1) Schizoaffective disorder Diagnosis: Principal (stabilized) ICD Code: F25.9 - Schizoaffective disorder, unspecified Status: Acute Mental Status Exam at Disch Patient is casually dressed. Patient is well groomed. Patient is awake and alert and oriented person and hospital at least. No evidence of delirium. No motor abnormalities appreciated. Speech is within normal limits for rate, tone , volume. Language and fund of knowledge average. Focus and concentration intact. Memory grossly intact on clinical exam. Mood is good. Affect is full and reactive. Thought process linear. No delusions elicited. Denies audiovisual hallucinations and does not appear internally stimulated. Denies suicidal or homicidal ideation, intent, or plan and contracts for safety. Insight and judgment seem fair to poor, and this may approximate patient's chronic condition. Pt Condition on Discharge: Stable Discharge Disposition: Discharge Home Discharge Instructions Diet Instructions: As Tolerated, No Restrictions Activities you can perform: Weight Bearing as Radha Scheduled Appointment: as per counselor's notes New Medications: Paliperidone Palmitate Inj (Invega Sustenna Inj) 156 Mg/Ml Inj 156 MG IM Q28D for Mental Health, #1 VIAL 0 Refills This dose of Invega Sustenna is due on 01/22/2017. Paliperidone ER (Invega) 3 Mg Tab 3 MG PO DAILY for Mental Health for 15 Days, TAB 1 Refill Speak with your outpatient provider about tapering and stopping this medication. Be sure to get your next Invega Sustenna injection. Sennosides-Docusate Sodium (Senna Plus 8.6-50 mg) 1 Tab Tab 1 TAB PO BID for Constipation for 15 Days, TAB 1 Refill Stop this medication if you develop loose stools. Continued Medications: Atorvastatin (Atorvastatin) 10 Mg Tab 10 MG PO HS for Cholesterol Management, #30 TAB 0 Refills Gabapentin (Gabapentin) 100 Mg Cap 100 MG PO BID, #60 CAP 0 Refills Discontinued Medications: Paliperidone ER (Invega) 1.5 Mg Tab 1.5 MG PO DAILY for Schizophrenia, #30 TAB 0 Refills Phytosterol [id number] (Vayarol) 630-232.5-92.5 mg Cap Sulfamethoxazole-Trimethoprim (Bactrim DS) 800-160 Mg Tab 1 TAB PO BID for Infection for 7 Days, TAB Discharge Time <= 30 minutes Discharge/Advance Care Plan Health Problems: (1) Schizoaffective disorder Goals to promote your health * To prevent worsening of your condition and complications * To maintain your health at the optimal level Directions to meet your goals Take your medications as prescribed Follow your dietary instruction Follow activity as directed Keep your appointments as scheduled Take your immunizations and boosters as scheduled If your symptoms worsen call your PCP, if no PCP go to Urgent Care Center or Emergency Room For 25/11 questions related to your inpatient stay or results of tests pending at discharge, please contact Dr. Oren Pérez at Smoking is Dangerous to Your Health. Avoid second hand smoking Problem Qualifiers (1) Schizoaffective disorder: Oren Pérez MD Dec 26, 2016 12:24
== END 2016-12-26 14:55 | disposition home or self-care (01) | DRG 885 ==
LOC: NEPJ 16:09 → NEDA 12-13 00:12 → H260 12-13 04:45
PROVIDERS: ADMIT Psychiatry & Neurology Psychiatry; ATTEND Psychiatry & Neurology Psychiatry
DX: F25.0 Schizoaffective disorder, bipolar type (principal); I69.351 Hemiplegia and hemiparesis following cerebral infarction affecting right dominant side; I10 Essential (primary) hypertension; N30.00 Acute cystitis without hematuria; M19.90 Unspecified osteoarthritis, unspecified site; I25.10 Atherosclerotic heart disease of native coronary artery without angina pectoris; E11.9 Type 2 diabetes mellitus without complications; K21.9 Gastro-esophageal reflux disease without esophagitis; F17.210 Nicotine dependence, cigarettes, uncomplicated; K59.00 Constipation, unspecified; Z91.19 Patient's noncompliance with other medical treatment and regimen
CPT/HCPCS: 80048; 80053; 80061; 80307; 81001; 83036; 85025; 87086; 93005; J2426; Q0163